=== PATIENT | male | born 1950 | race Caucasian/White ===

== ENCOUNTER 2024-02-25 14:23 | Outpatient (CLI) | payer MEDICARE, SELFPAY | END 2024-02-25 14:24 | disposition home or self-care (01) | PROVIDERS: PCP Family Medicine; Visit Provider Family Medicine | DX: I25.10 Atherosclerotic heart disease of native coronary artery without angina pectoris (principal); R06.09 Other forms of dyspnea | CPT/HCPCS: 80053; 83880 ==

== ENCOUNTER 2024-03-04 08:00 | Outpatient (CLI) | payer MEDICARE, SELFPAY | END 2024-03-04 08:01 | disposition home or self-care (01) | PROVIDERS: PCP Family Medicine; Visit Provider Family Medicine | DX: I25.10 Atherosclerotic heart disease of native coronary artery without angina pectoris (principal); R06.09 Other forms of dyspnea | CPT/HCPCS: 93306 ==

== ENCOUNTER 2024-03-20 01:47 | Emergency (ER) | payer MEDICARE, SELFPAY ==
[2024-03-20] VITALS (30 sets, daily range): BP systolic 138–147; BP diastolic 69–79; PULSE 61–69; RESP 16–18; TEMP 36.5; O2SAT 87–96; BMI 33.4
--- NOTE | 2024-03-20 01:48 | CRLHL7_ITS ---
For Patients: As a result of the Century Cures Act, medical imaging exams and procedure reports are released immediately into your electronic medical record. You may view this report before your referring provider. If you have questions, please contact your health care provider. Indication: Trauma, fall Technique: Noncontrast CT through the cervical spine with multiplanar reformats Comparison: None Findings: Alignment: Mild leftward lateral listing, may be positional. Bones: No acute fracture. No lytic or blastic lesion. Cervical levels: No acute abnormality appreciated. Moderate multilevel degenerative changes. Soft tissues: No acute abnormality appreciated. Impression: No acute abnormality appreciated. Please note that all CT scans at this facility use dose modulation, iterative reconstruction, and/or weight-based dosing when appropriate to reduce radiation dose to as low as reasonably achievable. Dictated by Casper Arango MD @ 03/20/2024 2:24:54 AM (Electronically Signed)
--- NOTE | 2024-03-20 01:48 | CRLHL7_ITS ---
For Patients: As a result of the Century Cures Act, medical imaging exams and procedure reports are released immediately into your electronic medical record. You may view this report before your referring provider. If you have questions, please contact your health care provider. Indication: Trauma, fall Technique: Noncontrast CT through the head with multiplanar reformats Comparison: None Findings: Brain: No acute hemorrhage. No acute infarct. No significant mass effect or midline shift. No gross evidence of a mass lesion or cerebral edema. Mild chronic microvascular ischemic disease. Ventricles: No acute abnormality appreciated. Orbits, sinuses, mastoids: Mild motion degradation. Suspect nasal bone fractures. Calvarium and soft tissues: Left frontal scalp laceration. Scalp vertex contusion. Impression: Left frontal scalp laceration and scalp vertex contusion with suspected nasal bone fractures, though evaluation is slightly degraded by motion. No acute intracranial abnormality appreciated. Please note that all CT scans at this facility use dose modulation, iterative reconstruction, and/or weight-based dosing when appropriate to reduce radiation dose to as low as reasonably achievable. Dictated by Casper Arango MD @ 03/20/2024 2:23:25 AM (Electronically Signed)
--- NOTE | 2024-03-20 02:14 | ED_ITS ---
HPI - Fall General Date Seen: 03/20/24 Chief Complaint: Fall/Minor Trauma Stated Complaint: Fall Time Seen by Provider: 03/20/24 01:48 Source: patient Mode of arrival: ambulatory Limitations: no limitations History of Present Illness HPI Narrative: Patient is a 74-year-old male with a history of coronary artery disease with multiple stents placed on Eliquis, hypertension presenting to the emergency department after a fall. He was walking up steps when he lost his balance and fell falling down about 10-12 carpeted steps. He did hit his head and he states he lost consciousness for a few seconds. He is now waking acting normal though. EMS states his vital signs were stable. He does admit to drinking about 5-6 like beers this evening. Denies any pain right now. Denies lightheadedness, dizziness, chest pain, abdominal pain, diarrhea, constipation, vision changes, weakness, numbness. Does of mild headache life is mostly in his forehead work there is of contusion. Is been having issues with shortness of breath over the past several months and has been evaluated by Cardiology and they believe is his heart is functioning properly. They are currently trying to find a pulmon ologist for this. No other concerns noted at this time. Related Data Home Medications ?Medication ?Instructions ?Recorded ?Confirmed acetaminophen 500 mg tablet 500 mg PO Q6H PRN 02/25/24 02/25/24 (Tylenol Extra Strength) amlodipine 2.5 mg tablet 2.5 mg PO DAILY 02/25/24 02/25/24 apixaban 5 mg tablet (Eliquis) 5 mg PO BID 02/25/24 02/25/24 ezetimibe 10 mg tablet (Zetia) 10 mg PO QDAY 02/25/24 02/25/24 lisinopril 40 mg tablet 40 mg PO QDAY 02/25/24 02/25/24 loratadine 10 mg tablet (Claritin) 10 mg PO QDAY 02/25/24 02/25/24 metoprolol succinate 25 mg 25 mg PO QDAY 02/25/24 02/25/24 tablet,extended release 24 hr (Toprol XL) nitroglycerin 0.4 mg sublingual 0.4 mg sublingual Q5M PRN 02/25/24 02/25/24 tablet ranolazine 500 mg tablet,extended 500 mg PO BID 02/25/24 02/25/24 release,12 hr rosuvastatin 40 mg tablet (Crestor) 40 mg PO QDAY 02/25/24 02/25/24 sildenafil 25 mg tablet 25 mg PO DAILY PRN 02/25/24 02/25/24 Allergies Allergy/AdvReac Type Severity Reaction Status Date / Time No Known Drug Allergies Allergy Verified 02/25/24 13:55 Review of Systems Status of ROS: Reports: 10 or more systems reviewed and unremarkable except as noted in History and below [facility] Medical History CAD (coronary artery disease) ?I25.10 - Atherosclerotic heart disease of [place] coronary artery without angina pectoris (ICD-10) Social History Smoking Status: Current every day smoker What tobacco products do you use: cigarettes How often do you have a drink containing alcohol: 2-3 times a week How many standard drinks containing alcohol do you have on a typical day: 5 or 6 How often do you have six or more drinks on one occasion: Monthly AUDIT-C Alcohol total score: 7 Non-prescribed substance use: denies use Little interest or pleasure in doing things: several days Feeling down, depressed, or hopeless: several days service: No Exam Narrative: Exam Narrative: Const: Well-nourished, Well-developed, in mild distress Eyes: PERRL, no conjunctival injection, and symmetrical lids HENT: Atraumatic external nose and ears. Moist mucous membranes. Contusion to forehead with a small laceration but is no longer bleeding Neck: Symmetric, trachea midline, No thyromegaly. CVS: RRR, No murmurs or gallops. Peripheral pulses 2+ and equal in all extremities RESP: Unlabored respiratory effort. Clear to auscultation bilaterally. GI: Nontender/Nondistended, No rebound or guarding. MSK:Extremities w/o deformity, Normal Active ROM, no midline spinal tenderness Skin: Warm, Dry. No rashes or lesions. Neuro: Normal Muscle tone, Cranial nerves 2-12 grossly intact, normal [id number], normal [id number], normal strength 5/5 upper lower extremities bilaterally, normal sensation upper and lower extremities bilaterally, normal rapid alternating movements.. GCS 15 Psych: Awake, Alert, & Oriented x3. Appropriate mood and affect. Const: Vital Signs, click to edit/add: Vital Signs - 24 hr 03/20/24 01:57 03/20/24 02:06 03/20/24 02:10 Temperature 97.7 F Pulse Rate 65 Pulse Rate [Pulse Oximeter] 65 Respiratory Rate 18 Blood Pressure 138/74 Blood Pressure [Ri ght Upper Arm] 143/79 H Pulse Oximetry 96 95 Oxygen Delivery [facility] Room Air 03/20/24 02:15 03/20/24 02:20 03/20/24 02:30 Temperature Pulse Rate 67 69 65 Pulse Rate [Pulse Oximeter] Respiratory Rate Blood Pressure 147/77 H 144/72 H Blood Pressure [Ri ght Upper Arm] Pulse Oximetry 93 94 93 Oxygen Delivery [facility] 03/20/24 02:31 03/20/24 02:40 03/20/24 02:45 Temperature Pulse Rate 65 65 67 Pulse Rate [Pulse Oximeter] Respiratory Rate Blood Pressure 144/72 H Blood Pressure [Ri ght Upper Arm] Pulse Oximetry 94 93 95 Oxygen Delivery [facility] 03/20/24 03:00 03/20/24 03:01 03/20/24 03:10 Temperature Pulse Rate 66 66 64 Pulse Rate [Pulse Oximeter] Respiratory Rate Blood Pressure 146/75 H 140/71 H Blood Pressure [Ri ght Upper Arm] Pulse Oximetry 90 91 94 Oxygen Delivery [facility] 03/20/24 03:15 03/20/24 03:30 03/20/24 03:45 Temperature Pulse Rate 62 65 62 Pulse Rate [Pulse Oximeter] Respiratory Rate Blood Pressure Blood Pressure [Ri ght Upper Arm] Pulse Oximetry 94 93 93 Oxygen Delivery [facility] 03/20/24 04:00 03/20/24 04:10 03/20/24 04:15 Temperature Pulse Rate 63 61 63 Pulse Rate [Pulse Oximeter] Respiratory Rate Blood Pressure 144/78 H Blood Pressure [Ri ght Upper Arm] Pulse Oximetry 90 87 L 87 L Oxygen Delivery [facility] 03/20/24 04:30 03/20/24 04:45 03/20/24 05:00 Temperature Pulse Rate 65 63 64 Pulse Rate [Pulse Oximeter] Respiratory Rate Blood Pressure Blood Pressure [Ri ght Upper Arm] Pulse Oximetry 92 96 92 Oxygen Delivery Me thod 03/20/24 05:10 03/20/24 05:15 03/20/24 05:30 Temperature Pulse Rate 64 61 68 Pulse Rate [Pulse Oximeter] Respiratory Rate Blood Pressure 143/72 H Blood Pressure [Ri ght Upper Arm] Pulse Oximetry 94 94 93 Oxygen Delivery Me thod 03/20/24 05:45 03/20/24 06:00 03/20/24 06:10 Temperature Pulse Rate 63 67 63 Pulse Rate [Pulse Oximeter] Respiratory Rate Blood Pressure 145/76 H Blood Pressure [Ri ght Upper Arm] Pulse Oximetry 94 96 94 Oxygen Delivery Me thod 03/20/24 06:15 03/20/24 06:30 Temperature Pulse Rate 63 63 Pulse Rate [Pulse Oximeter] Respiratory Rate Blood Pressure Blood Pressure [Ri ght Upper Arm] Pulse Oximetry 94 95 Oxygen Delivery Me thod Course Vital Signs Vital signs: Initial Vital Signs Temperature 97.7 F 03/20/24 01:57 Temperature Source Temporal Artery Scan 03/20/24 01:57 Pulse Rate 65 03/20/24 01:57 Respiratory Rate 18 03/20/24 01:57 Blood Pressure 143/79 H 03/20/24 01:57 Blood Pressure Mean 100 03/20/24 01:57 Blood Pressure Position Supine 03/20/24 01:57 Pulse Oximetry 96 03/20/24 01:57 Oxygen Delivery Method Room Air 03/20/24 01:57 Vital Signs Temperature 97.7 F 03/20/24 01:57 Pulse Rate 65 03/20/24 01:57 Respiratory Rate 18 03/20/24 01:57 Blood Pressure 143/79 H 03/20/24 01:57 Pulse Oximetry 96 03/20/24 01:57 Oxygen Delivery Method Room Air 03/20/24 01:57 Temperature 97.7 F 03/20/24 01:57 Pulse Rate 63 03/20/24 06:30 Respiratory Rate 18 03/20/24 01:57 Blood Pressure 145/76 H 03/20/24 06:10 Pulse Oximetry 95 03/20/24 06:30 Oxygen Delivery Method Room Air 03/20/24 01:57 MDM - Fall MDM Narrative Medical decision making narrative: Patient is a 74-year-old male presenting to emergency department after a fall. Due to the mechanism of action TTA was called and I was in the room waiting for the patient when he is brought in by EMS. Me they brought the patient to CT for a cervical spine and head. He is acting normal at this time and appears stable. After the CT results were done I physical exam showed no concerning findings. Vital signs are stable and I am not finding any need for CT scan of the chest or abdomen pelvis at this time. Is not requesting anything for pain. Will order a CBC, CMP, magnesium, troponin, EKG. Will also do an EGD [place] level due to admitting to drinking alcohol today. CT scan of the cervical spine showed no concerning findings. C-collar was removed. Is having no neck pain at this time. CT scan head showed no signs of intracranial bleeding but there was concern for possible nasal fracture. Will do a facial bone CT to better evaluate any possible facial bone fractures. Lab work shows no concerning findings. He is intoxicated. The facial bone CT does not show any fractures. He is doing well otherwise. Considering the mechanism of action and the fact he is on blood thinners I would like to monitor him until morning to make sure there is no delayed bleeding. He is agreeable to this plan. The small laceration has or does not requiring stitches at this time. Patient is released from the emergency department at 07:30 after repeat neuro exam was done and was normal. His monitor for total 5 hours and 30 minutes. Had no symptoms throughout this time and I believe he is safe for discharge. Lab Data Labs: Lab Results 03/20/24 03/20/24 Range/Units 01:48 02:03 WBC 8.05 (4.50-11.00) K/uL RBC 4.54 (4.30-5.90) m/uL Hgb 14.3 (13.5-17.5) gm/dL Hct 43.0 (37.0-53.0) % MCV 95 (80-100) fL MCH 32 (26-34) pg MCHC 33 (32-36) gm/dL RDW Coeff of Brandan 12.6 (11.5-15.5) % Plt Count 175 (140-440) K/uL Neut % (Auto) 61.0 (42.0-72.0) % Lymph % (Auto) 25.3 (20-44) % Rowan % (Auto) 8.7 (0.0-11.0) % Eos % (Auto) 3.2 (0.0-7.0) % Baso % (Auto) 0.7 (0.0-3.0) % Neut # (Auto) 4.90 (1.7-7.0) K/uL Lymph # (Auto) 2.04 (0.90-2.90) K/uL Rowan # (Auto) 0.70 (0.00-0.90) K/UL Eos # (Auto) 0.26 (0.00-0.50) K/uL Baso # (Auto) 0.06 (0.00-0.30) K/uL Abs Immat Gran (auto) 0.09 (0.00-0.30) K/uL Imm/Tot Granulo (auto) 1.1 % Sodium 133 L (135-149) mmol/L Potassium 4.5 (3.6-5.1) mmol/L Chloride 100 (96-114) mmol/L Carbon Dioxide 19 L (20-32) mmol/L Anion Gap 14 (7-15) mEq/L BUN 16 (7-30) mg/dL Creatinine 1.1 (0.5-1.5) mg/dL Estimated Creat Clear 70.58 Estimated GFR 71 ml/min Glucose 99 (60-115) mg/dL Calcium 8.9 (8.4-10.6) mg/dL Magnesium 2.3 (1.5-2.6) mg/dL Total Bilirubin 0.8 (0.1-1.5) mg/dL AST 54 H (12-35) U/L ALT 36 (4-50) U/L Alkaline Phosphatase 56 (40-150) U/L Total Protein 7.5 (6.0-8.3) g/dL Albumin 4.6 (3.3-5.0) g/dL Ethyl Alcohol 0.30 H (0.01-0.03) % POC Troponin I 0.00 L (0.01-0.04) ng/ml Imaging Data CT scan had: Attestation: I have reviewed the pertinent imaging results. Radiologist's impression: Left frontal scalp laceration and scalp vertex contusion with suspected nasal bone fractures, though evaluation is slightly degraded by motion. No acute intracranial abnormality appreciated. Please note that all CT scans at this facility use dose modulation, iterative reconstruction, and/or weight-based dosing when appropriate to reduce radiation dose to as low as reasonably achievable. Dictated by Casper Arango MD @ 03/20/2024 2:23:[address] cervical spine: Attestation: I have reviewed the pertinent imaging results. Radiologist's impression: No acute abnormality appreciated. Please note that all CT scans at this facility use dose modulation, iterative reconstruction, and/or weight-based dosing when appropriate to reduce radiation dose to as low as reasonably achievable. Dictated by Casper Arango MD @ 03/20/2024 2:24:[address] scan facial bones: Attestation: I have reviewed the pertinent imaging results. Radiologist's impression: No evident acute facial fractures. Please note that all CT scans at this facility use dose modulation, iterative reconstruction, and/or weight-based dosing when appropriate to reduce radiation dose to as low as reasonably achievable. Dictated by Trent Gould MD @ 03/20/2024 3:50:08 AM Discharge Plan Discharge Clinical Impression: Fall (on) (from) other stairs and steps, initial encounter Closed head injury Qualifiers: Encounter type: initial encounter Qualified Code(s): S09.90XA - Unspecified injury of head, initial encounter Patient Disposition: Home, Self-Care Condition: Stable Instructions: Head Injury (DC) Additional Instructions: If you notice she cell developing or anyone else went you notice you developing any neurological symptoms return to the emergency department immediately for re-evaluation. Prescriptions: No Action rosuvastatin [Crestor] 40 mg tablet 40 mg PO QDAY ezetimibe [Zetia] 10 mg tablet 10 mg PO QDAY lisinopril 40 mg tablet 40 mg PO QDAY Eliquis 5 mg tablet 5 mg PO BID metoprolol succinate [Toprol XL] 25 mg tablet extended release 24 hr 25 mg PO QDAY nitroglycerin 0.4 mg tablet, sublingual 0.4 mg sublingual Q5M PRN Rx Instructions: do not exceed 3 doses per episode loratadine [Claritin] 10 mg tablet 10 mg PO QDAY acetaminophen [Tylenol Extra Strength] 500 mg tablet 500 mg PO Q6H PRN amlodipine 2.5 mg tablet 2.5 mg PO DAILY sildenafil 25 mg tablet 25 mg PO DAILY PRN ranolazine 500 mg tablet extended release 12 hr 500 mg PO BID Follow Up/Referrals: Darrell Anton MD [Primary Care Provider] - Stand Alone Forms: [facility] Info Instructions
[2024-03-20 02:17] LABS: Basophils Absolute Auto 0.06 K/uL (0.00-0.30); Basophils Percent Auto 0.7 % (0.0-3.0); Eosinophils Absolute Auto 0.26 K/uL (0.00-0.50); Eosinophils Percent Auto 3.2 % (0.0-7.0); Hemoglobin* 14.3 gm/dL (13.5-17.5); Immature Granulocytes Abs Auto 0.09 K/uL (0.00-0.30); Immature Granulocytes Pct Auto 1.1 %; Lymphocytes Absolute Auto 2.04 K/uL (0.90-2.90); Lymphocytes Percent Auto 25.3 % (20-44); Mean Corpuscular HGB Conc 33 gm/dL (32-36); Mean Corpuscular Hemoglobin 32 pg (26-34); Mean Corpuscular Volume 95 fL (80-100); Monocytes Percent Auto 8.7 % (0.0-11.0); Platelet Count* 175 K/uL (140-440); RDW Coefficient of Variation % 12.6 % (11.5-15.5); Red Blood Count 4.54 m/uL (4.30-5.90); White Blood Count* 8.05 K/uL (4.50-11.00)
[2024-03-20 02:18] LABS: Slide Review Reflex No
--- NOTE | 2024-03-20 02:25 | CRLHL7_ITS ---
For Patients: As a result of the Century Cures Act, medical imaging exams and procedure reports are released immediately into your electronic medical record. You may view this report before your referring provider. If you have questions, please contact your health care provider. Indication: Code trauma, fall. Technique: Noncontrast axial CT of the facial bones with coronal reformats are provided. No comparisons. Findings: No evident acute facial fractures. Redemonstrated left frontal scalp swelling. No radiopaque foreign bodies. 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 Leftward nasal septal deviation with an osseous spur that impinges upon the left inferior turbinate. Mild scattered mucosal thickening in the paranasal sinuses. Impression: No evident acute facial fractures. Please note that all CT scans at this facility use dose modulation, iterative reconstruction, and/or weight-based dosing when appropriate to reduce radiation dose to as low as reasonably achievable. Dictated by Trent Gould MD @ 03/20/2024 3:50:08 AM (Electronically Signed)
[2024-03-20 02:32] LABS: Albumin* 4.6 g/dL (3.3-5.0); Chloride* 100 mmol/L (96-114); Potassium* 4.5 mmol/L (3.6-5.1); Sodium* 133 mmol/L (135-149)
[2024-03-20 02:35] LABS: Alkaline Phosphatase* 56 U/L (40-150); Anion Gap 14 mEq/L (7-15); Aspartate Amino Transferase* 54 U/L (12-35); Bilirubin Total* 0.8 mg/dL (0.1-1.5); Blood Urea Nitrogen* 16 mg/dL (7-30); Calcium* 8.9 mg/dL (8.4-10.6); Carbon Dioxide* 19 mmol/L (20-32); Creatinine* 1.1 mg/dL (0.5-1.5); Est. Creatinine Clearance* 70.58; Estimated Glomerular Filt Rate 71 ml/min; Glucose* 99 mg/dL (60-115); Total Protein* 7.5 g/dL (6.0-8.3)
[2024-03-20 02:36] LABS: Alanine Aminotransferase* 36 U/L (4-50); Magnesium* 2.3 mg/dL (1.5-2.6)
== END 2024-03-20 08:31 | disposition home or self-care (01) ==
PROVIDERS: Emergency Provider Student in an Organized Health Care Education/Training Program; PCP Family Medicine
DX: S06.9X1A Unspecified intracranial injury with loss of consciousness of 30 minutes or less, initial encounter (principal); W10.9XXA Fall (on) (from) unspecified stairs and steps, initial encounter
CPT/HCPCS: 36415; 70450; 70486; 72125; 80053; 82077; 83735; 84484; 85025; 93005; 99283; 99284; 99285; 99291; G0390

== ENCOUNTER 2024-05-09 19:22 | Outpatient (CLI) | payer MEDICARE, SELFPAY ==
--- NOTE | 2024-05-30 09:13 | W.PM.SLEEP ---
Sleep Study Details Details Interpreting Provider: Bita Date of Sleep Study: 05/09/24 Sleep Study Details: STUDY TYPE:? Home unattended ? BMI:? 33.6 ORDERING PROVIDER:? Desean INDICATION:? Concern about sleep apnea ? SLEEP SUMMARY:? 462 minutes monitored RESPIRATORY SUMMARY:? AHI 14.9 per CMS guideline, 23.4 per rule 1A guideline, low oxygen 76, stony 7.2% of study oxygen less than 90%, snoring 80.1% PERIODIC LIMB MOVEMENTS OF SLEEP:? Not recorded CARDIAC:? range 48-86, mean 58.5 beats per minute IMPRESSION:? Mild obstructive sleep apnea with significant desaturations RECOMMENDATION: AutoSet CPAP with follow-up oximetry once effective therapy is established.
== END 2024-05-09 19:23 | disposition home or self-care (01) ==
LOC: SLEEP 19:22
PROVIDERS: PCP Family Medicine; Visit Provider Family Medicine
DX: G47.33 Obstructive sleep apnea (adult) (pediatric) (principal)
CPT/HCPCS: 95806

== ENCOUNTER 2025-04-10 09:01 | Outpatient (CLI) | payer MEDICARE, SELFPAY | END 2025-04-10 09:02 | disposition home or self-care (01) | LOC: NFLDREF 04-12 11:58 | PROVIDERS: PCP Family Medicine; Referring Provider Family Medicine; Visit Provider Family Medicine | DX: I25.10 Atherosclerotic heart disease of native coronary artery without angina pectoris (principal); R06.09 Other forms of dyspnea; R00.1 Bradycardia, unspecified; E53.8 Deficiency of other specified B group vitamins; Z12.5 Encounter for screening for malignant neoplasm of prostate | CPT/HCPCS: 80053; 80061; 82607; G0103 ==

== ENCOUNTER 2025-04-14 09:01 | Outpatient (CLI) | payer MEDICARE, SELFPAY | END 2025-04-14 09:02 | disposition home or self-care (01) | LOC: NFLDREF 04-18 03:13 | PROVIDERS: PCP Family Medicine; Referring Provider Family Medicine; Visit Provider Family Medicine | DX: R00.1 Bradycardia, unspecified (principal); R06.09 Other forms of dyspnea | CPT/HCPCS: 84443 ==

== ENCOUNTER 2025-05-08 11:37 | Outpatient (CLI) | payer MEDICARE, SELFPAY | END 2025-05-08 11:38 | disposition home or self-care (01) | LOC: LKVREF 11:41 | PROVIDERS: PCP Family Medicine; Visit Provider Family Medicine | DX: E53.8 Deficiency of other specified B group vitamins (principal) | CPT/HCPCS: 82607 ==